=== PATIENT | female | born 1975 | race Caucasian/White ===

== ENCOUNTER 2024-10-24 19:35 | Emergency (ER) | payer BC, SELFPAY ==
[2024-10-24] VITALS (35 sets, daily range): BP systolic 107–156; BP diastolic 58–94; PULSE 91; TEMP 36.8; O2SAT 71–100; BMI 33.1
--- NOTE | 2024-10-24 19:55 | ED_ITS ---
HPI - Allergic Reaction General Chief complaint: Allergic Reaction Stated complaint: HIVES, LIP SWOLLEN Time Seen by Provider: 10/24/24 19:49 Source: patient Mode of arrival: walk-in Limitations: no limitations History of Present Illness HPI narrative: The patient is a healthy 49-year-old female with a history of depressions presenting to the emergency department for left lower lip swelling and urticaria all over her abdominal wall. The patient stated her symptoms started yesterday evening. She stated that she is not having any difficulty breathing or swallowing. No tongue or cheek swelling. She does has lower lip swelling. She denies any lip injections. She denies any trauma to her face. She denies biting her lip. She denies any new lip balm or lipstick. The patient denies taking any medications that ended in a ela . Patient states that she is new to taking bupropion. She just started taking it twice a day. Patient stated that she is only been on the medication a little over a week. Patient stated that also beginning last night was urticaria. She had red raised hives all over her abdomen, bilateral hips and proximal legs. Patient states that it is itchy. Unknown what makes it worse. Nothing makes it better. Last dose of bupropion was yesterday. Patient has not taken any medication prior to arrival. Patient denies that she has a history of anaphylactic reactions. Nobody in her family has anaphylactic reactions. Patient has not had any new food. She has not had any new beverages. No new vitamins. Patient has not had any lip injections. No recent vaccinations. No sick contacts or recent travel. No fever or chills. Related Data Home Medications ?Medication ?Instructions ?Recorded ?Confirmed bupropion HCl 100 mg tablet,12 hr mg PO 10/24/24 sustained-release Allergies Allergy/AdvReac Type Severity Reaction Status Date / Time bupropion (From Wellbutrin) Allergy Severe Anaphylaxis Verified 10/25/24 00:45 Review of Systems ROS Narrative 10 Systems were reviewed, and unless not ed in the HPI, all other systems are reviewed, unremarkable, or noncontributory. [facility] Social History Little interest or pleasure in doing things: not at all Feeling down, depressed, or hopeless: not at all Exam Narrative Exam Narrative: Prior to examining the patient, I have washed with hospital approved and provided Antiseptic [employer] Specialist and have also applied gloves.? Prior to touching the patient, I asked for consent to examine the patient.? General: Alert and oriented, well nourished, mild distress. Eye: PERRL, EOMI, normal conjunctiva. HENT: Normocephalic, normal hearing, moist oral mucosa, no scleral icterus, no sinus tenderness. No evidence of any lingular or buccal mucosal edema. Tympanic membranes are not red, dull, bulging. Patient's left lower lip is swollen and shiny. No sublingual edema. Patient can protrude tongue. No evidence of trismus. Neck: Supple, non-tender, no carotid bruits, no JVD, no lymphadenopathy. No pharyngeal stridor. Lungs: Clear to auscultation and percussion, non-labored respiration. Heart: Normal rate, regular rhythm, no murmur, gallop or edema. Abdomen: Soft, non-tender, non-distended, normal bowel sounds, no masses. Musculoskeletal: Normal range of motion and strength, no tenderness or swelling. Skin: Skin is warm, dry and pink, no rashes or lesions. Neurologic: Awake, alert, and oriented X3, CN II-XII intact. Psychiatric: Cooperative, appropriate mood and affect.? Following the conclusion of the examination, I have washed my hands thoroughly after removing examination gloves. Constitutional Vital Signs, click to edit/add: Last Vital Signs Temp 98.2 F 10/24/24 19:43 Pulse 91 H 10/24/24 19:43 Resp 17 10/24/24 19:43 BP 156/91 H 10/24/24 19:43 Pulse Ox 97 10/24/24 19:43 O2 Del Method Room Air 10/24/24 19:43 Course Course Hospital Course: Patient is a 49-year-old female presenting to the emergency department her secondary to left lower lip swelling. Patient has no history of allergic reactions or anaphylactic reactions. Patient has no identifiable cause other than her bupropion which she started a couple weeks ago. When the patient arrived she received methylprednisolone 125 mg IV push, Benadryl 50 mg IV push, and Pepcid 20 mg IV push. She was evaluated about an hour or so afterwards and had really minimal improvement. In fact, a look like it was spreading to the right side and that is when we made the decision to begin her on TXA. Patient was reassessed and it appears that there is marked improvement in the patient's condition. We feel that the patient will be safe to go home and that the patient should continue on methylprednisolone, Benadryl, and Pepcid and that she should refrain from resuming the bupropion. Reevaluation(s) Reevaluation #1: Patient's urticaria has lightened in color and in size but the angioedema of the lower lip remains. TXA 1000 mg IV piggyback is going to be given. Patient is not complaining of any difficulty breathing or swallowing. Time: 22:13 Reevaluation #2: Patient was reevaluated. The patient has no evidence of any buccal mucosa or lingular edema. Patient is soft submental, submandibular, and sublingual layer. The patient has less shiny lips and it appears that it is resolving. Time: 00:49 Vital Signs Vital signs: Vital Signs Temperature 98.2 F 10/24/24 19:43 Pulse Rate 91 H 10/24/24 19:43 Respiratory Rate 17 10/24/24 19:43 Blood Pressure 156/91 H 10/24/24 19:43 Pulse Oximetry 97 10/24/24 19:43 Oxygen Delivery Method Room Air 10/24/24 19:43 Temperature 98.2 F 10/24/24 19:43 Pulse Rate 91 H 10/24/24 19:43 Respiratory Rate 17 10/24/24 19:43 Blood Pressure 156/91 H 10/24/24 19:43 Pulse Oximetry 97 10/24/24 19:43 Oxygen Delivery Method Room Air 10/24/24 19:43 MDM - Allergic Reaction MDM Narrative Medical decision making narrative: Patient has angioedema presumably from bupropion. Patient's is going to stay home from work and will be with her all day. Differential Diagnosis Differential diagnosis: Likely anaphylaxis, allergic reaction, angioedema, contact dermatitis, adverse reaction to drug, urticaria and other (lip injections, new lipstick, biting lips) Medical Records Attestation: I reviewed the patient's medical records. Discharge Plan Discharge Chief Complaint: Allergic Reaction Clinical Impression: Angioedema Patient Disposition: Home, Self-Care Time of Disposition Decision: 00:53 Condition: Good Mode of Transportation: Private Vehicle Prescriptions / Home Meds: No Action bupropion HCl 100 mg tablet sustained-release 12 hr PO Print Language: Nigerian Instructions: Angioedema (ED) Additional Instructions: Please stop your bupropion. Follow-up with your doctor for an alternative me dication. If there is any evidence of any intraoral swelling tongue swelling or facial swelling, you must return to the ER soon as possible for further evaluation treatment. Please pick up man your prescriptions today and take them until completed. Thank you for trusting me with your care and treatment today. I feel very honored to care for you. Referrals: Physician,Non-Staff, MD [Physician] - 1 week
[2024-10-24] MEDS: FAMOTIDINE/PF 20 MG/2 ML VIAL IV (20:10)
[2024-10-24] MEDS: METHYLPREDNISOLONE SOD SUCC PF 125 MG/2 ML VIAL IVP (20:10)
[2024-10-24] MEDS: DIPHENHYDRAMINE HCL 50 MG/ML VIAL IVP (20:10)
[2024-10-24] MEDS: 0.9 % SODIUM CHLORIDE 1,000 ML 1000 ML IV (20:10)
[2024-10-24] MEDS: TRANEXAMIC ACID 1,000 MG in 0.9 % SODIUM CHLORIDE 100 ML 440 MG IV (22:24)
--- NOTE | 2024-10-24 23:27 | PC.NURSE ---
Lower lip appears to be more swollen. MD aware.
[2024-10-25] VITALS (11 sets, daily range): BP systolic 96–117; BP diastolic 52–67; O2SAT 94–99
== END 2024-10-25 01:31 | disposition home or self-care (01) ==
PROVIDERS: Emergency Provider Emergency Medicine; PCP Nurse Practitioner Family
DX: T78.3XXA Angioneurotic edema, initial encounter (principal)
CPT/HCPCS: 96365; 96375; 99284; J1200; J2919; J3490